=== PATIENT | male | born 1980 | race Asian ===

== ENCOUNTER 2021-07-11 06:37 | Emergency (ER) | payer BC ==
[~2021-07-11] VITALS: Ht 182.9 cm; Wt 90.7 kg
[2021-07-11 06:45] VITALS: TEMP 100.1
[2021-07-11 07:12] LABS: PLATELET COUNT 552 K/uL (142-355)
[2021-07-11 08:36] VITALS: BP 136/85
== END 2021-07-11 08:36 | disposition home or self-care (01) ==
LOC: ED 06:37
PROVIDERS: Emergency Medicine
DX: U07.1 COVID-19 (principal); J12.82 Pneumonia due to coronavirus disease 2019
CPT/HCPCS: 80048; 84484; 85007; 85027; 85379; 93005; 96365; 96375; 99284; J0696; J1100

== ENCOUNTER 2022-01-17 20:25 | Emergency (ER) | payer BC ==
[~2022-01-17] VITALS: Ht 182.9 cm; Wt 90.7 kg
[2022-01-17 23:25] VITALS: BP 117/71; TEMP 97.8
== END 2022-01-17 23:30 | disposition home or self-care (01) ==
LOC: ED 20:25
PROC: 0HQNXZZ Repair Left Foot Skin, External Approach (ICD-10-PCS; principal; 2022-01-17)
DX: S91.322A Laceration with foreign body, left foot, initial encounter (principal); W54.0XXA Bitten by dog, initial encounter; Y92.89 Other specified places as the place of occurrence of the external cause
CPT/HCPCS: 90471; 90715; 96372; 99283; J0696; J7040

== ENCOUNTER 2022-10-30 09:25 | Emergency (ER) | payer BC ==
[~2022-10-30] VITALS: Ht 182.9 cm; Wt 90.7 kg
[2022-10-30 09:28] VITALS: TEMP 99.2
[2022-10-30 10:17] LABS: PLATELET COUNT 330 K/uL (142-355)
[2022-10-30 10:27] LABS: POTASSIUM 4.6 mmol/L (3.6-5.2)
[2022-10-30 11:14] VITALS: BP 119/78
== END 2022-10-30 11:15 | disposition home or self-care (01) ==
LOC: ED 09:25
PROVIDERS: Internal Medicine
DX: R19.7 Diarrhea, unspecified (principal)
CPT/HCPCS: 36415; 80048; 85027; 99283